=== PATIENT | male | born 1940 | race Caucasian/White ===

== ENCOUNTER 2017-03-08 15:13 | Emergency (ER) | payer MEDICARE, OTHER ==
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
[2017-03-08 16:17] LABS: HEMATOCRIT 43.3 % (42.0-52.0); HEMOGLOBIN 14.2 gm/dl (14.0-18.0); MEAN CORPUSCULAR HEMOGLOBIN 31.5 pg (27-33); MEAN CORPUSCULAR HGB CONC 32.8 g/dl (32-36); MEAN PLATELET VOLUME 10.2 fl (7.4-10.4); PLATELET COUNT 164 K/uL (130-400); RED BLOOD COUNT 4.51 M/uL (4.40-5.70); RED CELL DISTRIBUTION WIDTH 14.9 % (11.5-14.5); WHITE BLOOD COUNT W/O DIFF 8.5 K/uL (4.2-12.2)
[2017-03-08 16:27] LABS: BLOOD UREA NITROGEN 17 mg/dL (8-23); CREATININE 0.8 mg/dL (0.7-1.2); EST GLOMERULAR FILTRATION RATE > 60 mL/min
[2017-03-08 16:30] LABS: GLUCOSE,RANDOM 118 mg/dL (74-109)
[2017-03-08] MEDS ORDERED: MORPHINE SULFATE 5 MG/ML PFS IVP ONE (17:55)
[2017-03-08] MEDS ORDERED: PROMETHAZINE HCL 6.25 MG in 0.9 % SODIUM CHLORIDE 100ML 100 ML IVPB ONE (17:55)
[2017-03-08] MEDS ORDERED: FENTANYL PF 100MCG/2ML VIAL IVP ONE (18:31)
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
== END 2017-03-08 18:55 | disposition short-term general hospital (02) ==
LOC: ER 15:13
DX: S10.83XA Contusion of other specified part of neck, initial encounter (principal); S80.02XA Contusion of left knee, initial encounter; R07.89 Other chest pain; R51 Headache; I25.2 Old myocardial infarction; I10 Essential (primary) hypertension; V43.52XA Car driver injured in collision with other type car in traffic accident, initial encounter; Y92.411 Interstate highway as the place of occurrence of the external cause; Z87.891 Personal history of nicotine dependence
CPT/HCPCS: 99284 ×2; 96374; 96375; 80048; 85027; 73564; 72125; 71260; 70450; Q9967; J2270; J2550